=== PATIENT | female | born 1955 | race Caucasian/White ===

== ENCOUNTER 2020-06-09 16:21 | Emergency (ER) | payer MEDICARE, OTHER ==
[2020-06-09 19:33] LABS: HEMOGLOBIN 15.6 gm/dl (12.3-15.3); RED BLOOD COUNT 4.63 M/UL (4.00-5.10)
== END 2020-06-09 21:57 | disposition home or self-care (01) ==
LOC: ER1 16:21
PROVIDERS: Physician Assistant
DX: H53.9 Unspecified visual disturbance (principal); E11.9 Type 2 diabetes mellitus without complications; Z79.4 Long term (current) use of insulin; I10 Essential (primary) hypertension; Z90.710 Acquired absence of both cervix and uterus
CPT/HCPCS: 70496; 80053; 85025; 99284; Q9963